=== PATIENT | male | born 1995 | race Caucasian/White ===

== ENCOUNTER 2019-05-14 17:57 | Emergency (ER) | payer OTHER ==
[~2019-05-14] VITALS: Ht 198 cm; Wt 104.5 kg
[2019-05-14] MEDS ORDERED: OLANZapine 5 MG ODT (ZyPREXA ZYDIS) PO ONE ×2 (18:15→18:30)
--- NOTE | 2019-05-14 18:20 | NUR ---
FAMILY WTIH PATIENT.PATIENT REPORTS HAS ON HIM TO HARM HIS SELF OR OTHER.
[2019-05-14 18:40] LABS: BASOPHILS % (AUTO) 0 % (0-10); EOSINOPHILS % (AUTO) 0 % (0-10); HEMATOCRIT 46 % (40-54); HEMOGLOBIN 16.4 G/DL (13.3-17.7); LYMPHOCYTES # (AUTO) 2.2 X 10^3 (1.0-4.0); LYMPHOCYTES % (AUTO) 20 % (12-44); MEAN CORPUSCULAR HEMOGLOBIN 31 PG (25-34); MEAN CORPUSCULAR HGB CONC 36 G/DL (32-36); MEAN CORPUSCULAR VOLUME 86 FL (80-99); MEAN PLATELET VOLUME 8.6 FL (7.4-10.4); MONOCYTES # (AUTO) 1.1 X 10^3 (0.0-1.0); MONOCYTES % (AUTO) 10 % (0-12); NEUTROPHILS # (AUTO) 7.5 X 10^3 (1.8-7.8); NEUTROPHILS % (AUTO) 70 % (42-75); PLATELET COUNT 398 10^3/uL (130-400); RED CELL DISTRIBUTION WIDTH 12.3 % (10.0-14.5); WHITE BLOOD COUNT 10.7 10^3/uL (4.3-11.0)
[2019-05-14 18:43] LABS: BILIRUBIN,URINE NEGATIVE (NEGATIVE); CLARITY,URINE CLEAR; COLOR,URINE YELLOW; GLUCOSE, URINE (UA) NEGATIVE (NEGATIVE); KETONES,URINE 3+ (NEGATIVE); LEUKOCYTE ESTERASE ,URINE 1+ (NEGATIVE); NITRITE,URINE NEGATIVE (NEGATIVE); PH,URINE 8 (5-9); PROTEIN,URINE 2+ (NEGATIVE); UROBILINOGEN,URINE 4 MG/DL (NORMAL)
[2019-05-14 18:56] LABS: BARBITURATE SCREEN URINE NEGATIVE (NEGATIVE); CANNABINOID SCREEN, URINE POSITIVE (NEGATIVE); METHADONE STAT NEGATIVE (NEGATIVE); OPIATE SCREEN URINE NEGATIVE (NEGATIVE); OXYCODONE STAT NEGATIVE (NEGATIVE); PROPOXYPHENE STAT NEGATIVE (NEGATIVE); TRICYCLIC ANTIDEPRESSANTS SCRE NEGATIVE (NEGATIVE)
[2019-05-14 18:57] LABS: AMPHETAMINE SCREEN, URINE NEGATIVE (NEGATIVE); BENZODIAZEPINES SCREEN URINE NEGATIVE (NEGATIVE); COCAINE SCREEN URINE NEGATIVE (NEGATIVE); METHAMPHETAMINE SCREEN URINE S NEGATIVE (NEGATIVE)
[2019-05-14 18:59] LABS: BACTERIA,URINE MODERATE /HPF; WBC,URINE 0-2 /HPF
[2019-05-14 19:00] LABS: AMORPHOUS SEDIMENT,UR MOD AMOR PHOSPHATE /LPF
[2019-05-14 19:03] LABS: ALANINE AMINOTRANSFERASE 30 U/L (0-55); ALBUMIN 5.3 GM/DL (3.2-4.5); ALKALINE PHOSPHATASE 87 U/L (40-136); BILIRUBIN,TOTAL 2.6 MG/DL (0.1-1.0); BUN/CREATININE RATIO 14; CALCIUM 10.5 MG/DL (8.5-10.1); CARBON DIOXIDE 25 MMOL/L (21-32); CHLORIDE 106 MMOL/L (98-107); CREATININE SERUM 0.97 MG/DL (0.60-1.30); GFR ESTIMATED > 60; GLUCOSE 108 MG/DL (70-105); POTASSIUM 3.9 MMOL/L (3.6-5.0); SODIUM 141 MMOL/L (135-145); TOTAL PROTEIN 8.5 GM/DL (6.4-8.2)
--- NOTE | 2019-05-14 19:11 | ED Psychosocial ---
General Chief Complaint: Psych/Social Disorder Stated Complaint: ANXIETY Nursing Triage Note: TO TRIAGE WITH DAD. PT ANXIOUS. STATES HE HAS BEEN HAVING SCHITZOPHRENIC EPISODES X2 DAYS. STATES THIS HAS HAPPENED BEFORE 3 YRS AGO AND ONCE IN HIGHSCHOOL ET NEVER DX. THINKS THE RADIO IS TALKING TO HIM AND SCARED PEOPLE ARE AFTER HIM. DENIES WANTING TO HARM SELF. Source: patient Exam Limitations: no limitations History of Present Illness Date Seen by Provider: May 14, 2019 Time Seen by Provider: 18:20 Initial Comments To ER with c/o anxiety worse than usual for a few months. Brought to ER by his father. Reports scared people are after him, not sleeping, anxiety, "homicidal". WHen asked about the homicidal he states he doesnt want to hurt anyone in particular or anyone at all. No suicidal. He would prefer outpatient treatment, not currently on any medications or seeing any mental health provider. Reports history of bipolar. Timing/Duration: constant Severity: moderate Associated Symptoms: anxiety, impaired concentration Allergies and Home Medications Allergies Coded Allergies: No Known Drug Allergies (Unverified , 05/14/19) Home Medications Quetiapine Fumarate 50 Mg Tablet, 50 MG PO UD Day one 50 mg twice a day Day two 100 mg twice a day. Then continue at 100 mg twice a day. Prescribed by: DOMENICO CANTRELL on 05/14/191936 Patient Home Medication List Home Medication List Reviewed: Yes Review of Systems Constitutional: see HPI EENTM: see HPI Respiratory: no symptoms reported Cardiovascular: no symptoms reported Genitourinary: no symptoms reported Musculoskeletal: no symptoms reported Skin: no symptoms reported Psychiatric/Neurological: See HPI, Anxiety Past Widolkf-Cnwyuk-Utofij Hx Patient Social History Alcohol Use: Occasionally Uses Recreational Drug Use: No Smoking Status: Current Everyday Smoker Recent Foreign Travel: No Contact w/Someone Who Travel: No Recent Infectious Disease Expo: No Recent Hopitalizations: No Seasonal Allergies Seasonal Allergies: No Past Medical History Surgeries: Yes Orthopedic Respiratory: No Cardiac: Yes Hypertension Neurological: No Genitourinary: No Gastrointestinal: No Musculoskeletal: No Endocrine: No HEENT: No Cancer: No Psychosocial: Yes (ASPBURGERS) ADD/ADHD Integumentary: No Physical Exam Vital Signs - First Documented 05/14/19 18:00 Temp 36.0 Pulse 115 Resp 16 B/P (MAP) 126/76 (93) Pulse Ox 97 O2 Delivery Room Air Capillary Refill : Less Than 3 Seconds Height, Weight, BMI Height: '" Weight: lbs. oz. kg; 26.00 BMI Method: General Appearance: WD/WN, no apparent distress, other (cooperative, makes good eye contact, alert and oriented. No apparent hallucinations at this time. ) Neck: non-tender, full range of motion Respiratory: no respiratory distress, no accessory muscle use Gastrointestinal: normal bowel sounds, non tender, soft Neurologic/Psychiatric: alert, normal mood/affect, oriented x 3 Appearance/Memory: appropriate appearance, appropriate insight, neat Behavior/Eye Contact: cooperative, good eye contact, normal speech Thoughts/Hallucinations: normal thought pattern, no apparent hallucination Skin: normal color, warm/dry father at the bedside, seems appropriately concerned and a reliable source to keep an eye on the patient. Both agree that they would prefer the outpatient treatment setting. Progress/Results/Core Measures Results/Orders Lab Results Laboratory Tests Test 05/14/19 18:32 05/14/19 18:35 Range/Units White Blood Count 10.7 4.3-11.0 10^3/uL Red Blood Count 5.30 4.35-5.85 10^6/uL Hemoglobin 16.4 13.3-17.7 G/DL Hematocrit 46 40-54 % Mean Corpuscular Volume 86 80-99 FL Mean Corpuscular Hemoglobin 31 25-34 PG Mean Corpuscular Hemoglobin Concent 36 32-36 G/DL Red Cell Distribution Width 12.3 10.0-14.5 % Platelet Count 398 130-400 10^3/uL Mean Platelet Volume 8.6 7.4-10.4 FL Neutrophils (%) (Auto) 70 42-75 % Lymphocytes (%) (Auto) 20 12-44 % Monocytes (%) (Auto) 10 0-12 % Eosinophils (%) (Auto) 0 0-10 % Basophils (%) (Auto) 0 0-10 % Neutrophils # (Auto) 7.5 1.8-7.8 X 10^3 Lymphocytes # (Auto) 2.2 1.0-4.0 X 10^3 Monocytes # (Auto) 1.1 H 0.0-1.0 X 10^3 Eosinophils # (Auto) 0.0 0.0-0.3 10^3/uL Basophils # (Auto) 0.0 0.0-0.1 10^3/uL Sodium Level 141 135-145 MMOL/L Potassium Level 3.9 3.6-5.0 MMOL/L Chloride Level 106 98-107 MMOL/L Carbon Dioxide Level 25 21-32 MMOL/L Anion Gap 10 5-14 MMOL/L Blood Urea Nitrogen 14 7-18 MG/DL Creatinine 0.97 0.60-1.30 MG/DL Estimat Glomerular Filtration Rate > 60 BUN/Creatinine Ratio 14 Glucose Level 108 H 70-105 MG/DL Calcium Level 10.5 H 8.5-10.1 MG/DL Corrected Calcium 8.5-10.1 MG/DL Total Bilirubin 2.6 H 0.1-1.0 MG/DL Aspartate Amino Transf (AST/SGOT) 32 5-34 U/L Alanine Aminotransferase (ALT/SGPT) 30 0-55 U/L Alkaline Phosphatase 87 40-136 U/L Total Protein 8.5 H 6.4-8.2 GM/DL Albumin 5.3 H 3.2-4.5 GM/DL Urine Color YELLOW Urine Clarity CLEAR Urine pH 8 5-9 Urine Specific [place] 1.015 L 1.016-1.022 Urine Protein 2+ H NEGATIVE Urine Glucose (UA) NEGATIVE NEGATIVE Urine Ketones 3+ H NEGATIVE Urine Nitrite NEGATIVE NEGATIVE Urine Bilirubin NEGATIVE NEGATIVE Urine Urobilinogen 4 H NORMAL MG/DL Urine Leukocyte Esterase 1+ H NEGATIVE Urine RBC (Auto) NEGATIVE NEGATIVE Urine RBC NONE /HPF Urine WBC 0-2 /HPF Urine Squamous Epithelial Cells NONE /HPF Urine Crystals PRESENT H /LPF Urine Amorphous Sediment MOD RYLIE PHOSPHATE H /LPF Urine Bacteria MODERATE H /HPF Urine Casts NONE /LPF Urine Mucus MODERATE H /LPF Urine Culture Indicated NO Urine Opiates Screen NEGATIVE NEGATIVE Urine Oxycodone Screen NEGATIVE NEGATIVE Urine Methadone Screen NEGATIVE NEGATIVE Urine Propoxyphene Screen NEGATIVE NEGATIVE Urine Barbiturates Screen NEGATIVE NEGATIVE Ur Tricyclic Antidepressants Screen NEGATIVE NEGATIVE Urine Phencyclidine Screen NEGATIVE NEGATIVE Urine Amphetamines Screen NEGATIVE NEGATIVE Urine Methamphetamines Screen NEGATIVE NEGATIVE Urine Benzodiazepines Screen NEGATIVE NEGATIVE Urine Cocaine Screen NEGATIVE NEGATIVE Urine Cannabinoids Screen POSITIVE H NEGATIVE My Orders Orders - DOMENICO CANTRELL APRN Olanzapine Orally Dissolve Tab (Zyprexa (05/14/19 18:15) Olanzapine Orally Dissolve Tab (Zyprexa (05/14/19 18:30) Cbc With Automated Diff (05/14/19 18:20) Comprehensive Metabolic Panel (05/14/19 18:20) Ua Culture If Indicated (05/14/19 18:20) Drug Screen Stat (Urine) (05/14/19 18:33) Medications Given in ED Current Medications Medications Dose Ordered Sig/Neel Route Start Time Stop Time Status Last Admin Dose Admin Olanzapine 10 mg ONCE ONCE PO 05/14/19 18:30 05/14/19 18:31 DC 05/14/19 18:23 10 MG Vital Signs/I&O 05/14/19 18:00 Temp 36.0 Pulse 115 Resp 16 B/P (MAP) 126/76 (93) Pulse Ox 97 O2 Delivery Room Air Blood Pressure Mean: 93 Departure Communication (Admissions) Father Gabe Han same address [address] [place], [place] phone #[phone], patient's phone #[phone]. I spoke with Laondra from [facility], she will call them to do a check on the patient this evening and will call tomorrow to make an appointment for follow-up with a provider. 1940-patient states that he is feeling better, father reports that he also seems to be about 50% better but not back to baseline. They're agreeable with the plan, the patient will stay with his father polina Impression Primary Impression: Manic bipolar I disorder Disposition: 01 HOME, SELF-CARE Condition: Stable Departure-Patient Inst. Decision time for Depature: 19:12 Referrals: ROCÍO LOREDO MD (PCP/Family) Primary Care Physician Patient Instructions: Bipolar Disorder Add. Discharge Instructions: 1. Return to ER for any concerns 2. Medication as directed 3. All discharge instructions reviewed with patient and/or family. Voiced understanding. Scripts Quetiapine Fumarate (Seroquel) 50 Mg Tablet 50 MG PO UD, #30 TAB 1 Refill Day one 50 mg twice a day Day two 100 mg twice a day. Then continue at 100 mg twice a day. Prov: DOMENICO CANTRELL APRN 05/14/19 DOMENICO CANTRELL APRN May 14, 2019 19:11
[2019-05-14] MEDS ORDERED: QUET50TA PO (19:37)
[2019-05-14] MEDS ORDERED: QUEtiapine 25 MG (SEROquel) TAB IMMEDIATE RELEASE PO SCH (19:45)
[2019-05-14 19:59] VITALS: BP 125/70
== END 2019-05-14 20:11 | disposition home or self-care (01) ==
LOC: ER 17:59
DX: F31.9 Bipolar disorder, unspecified (principal); F41.9 Anxiety disorder, unspecified; I10 Essential (primary) hypertension; F90.9 Attention-deficit hyperactivity disorder, unspecified type; F17.200 Nicotine dependence, unspecified, uncomplicated
CPT/HCPCS: 36415; 80053; 80306; 81000; 85025

== ENCOUNTER 2019-12-13 15:46 | Emergency (ER) | payer OTHER ==
[~2019-12-13] VITALS: Ht 182 cm; Wt 90.7 kg
[~2019-12-13 15:46] MED LIST: QUET50TA PO
[2019-12-13] MEDS ORDERED: LACTATED RINGERS 1,000 ML IV ONE (16:18)
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
[2019-12-13] MEDS ORDERED: OLANZapine 5 MG ODT (ZyPREXA ZYDIS) PO ONE ×2 (16:30)
--- NOTE | 2019-12-13 16:38 | NUR ---
WAS ABLE TO GET PT TO TAKE HIS ORAL MEDS BUT HE REFUSES TO HAVE A IV OR EKG AT THIS TIME.
--- NOTE | 2019-12-13 17:13 | NUR ---
UPDATED DAD THAT PT IS NOW ALLOWING US TO DO PROCEDURES AND SEEMS TO BE DOING BETTER AT THIS TIME.
[2019-12-13 17:15] LABS: BASOPHILS % (AUTO) 0 % (0-10); EOSINOPHILS % (AUTO) 0 % (0-10); HEMATOCRIT 40 % (40-54); HEMOGLOBIN 14.6 G/DL (13.3-17.7); LYMPHOCYTES # (AUTO) 1.5 X 10^3 (1.0-4.0); LYMPHOCYTES % (AUTO) 11 % (12-44); MEAN CORPUSCULAR HEMOGLOBIN 31 PG (25-34); MEAN CORPUSCULAR HGB CONC 36 G/DL (32-36); MEAN CORPUSCULAR VOLUME 85 FL (80-99); MEAN PLATELET VOLUME 8.7 FL (7.4-10.4); MONOCYTES # (AUTO) 1.1 X 10^3 (0.0-1.0); MONOCYTES % (AUTO) 8 % (0-12); NEUTROPHILS # (AUTO) 10.7 X 10^3 (1.8-7.8); NEUTROPHILS % (AUTO) 80 % (42-75); PLATELET COUNT 322 10^3/uL (130-400); RED CELL DISTRIBUTION WIDTH 12.2 % (10.0-14.5); WHITE BLOOD COUNT 13.3 10^3/uL (4.3-11.0)
[2019-12-13 17:20] LABS: CHLORIDE 107 MMOL/L (98-107); POTASSIUM 3.5 MMOL/L (3.6-5.0); SODIUM 138 MMOL/L (135-145)
[2019-12-13 17:21] LABS: BILIRUBIN,URINE NEGATIVE (NEGATIVE); CLARITY,URINE CLOUDY; COLOR,URINE YELLOW; GLUCOSE, URINE (UA) NEGATIVE (NEGATIVE); KETONES,URINE 1+ (NEGATIVE); LEUKOCYTE ESTERASE ,URINE NEGATIVE (NEGATIVE); NITRITE,URINE NEGATIVE (NEGATIVE); PH,URINE 8.5 (5-9); PROTEIN,URINE TRACE (NEGATIVE)
[2019-12-13 17:21] LABS: ALBUMIN 4.7 GM/DL (3.2-4.5)
[2019-12-13 17:23] LABS: GLUCOSE 91 MG/DL (70-105); TOTAL PROTEIN 7.8 GM/DL (6.4-8.2)
[2019-12-13 17:24] LABS: CARBON DIOXIDE 20 MMOL/L (21-32)
[2019-12-13 17:25] LABS: BILIRUBIN,TOTAL 2.1 MG/DL (0.1-1.0)
[2019-12-13 17:27] LABS: ALKALINE PHOSPHATASE 73 U/L (40-136); CREATININE SERUM 0.81 MG/DL (0.60-1.30); GFR ESTIMATED > 60
[2019-12-13 17:28] LABS: BUN/CREATININE RATIO 11
[2019-12-13 17:30] LABS: ALANINE AMINOTRANSFERASE 26 U/L (0-55); SALICYLATE < 5.0 MG/DL (5.0-20.0)
[2019-12-13] MEDS ORDERED: OLAN10TA3 PO (17:34)
[2019-12-13 17:37] LABS: AMORPHOUS SEDIMENT,UR LARGE AMOR PHOSPHATE /LPF; BACTERIA,URINE TRACE /HPF; RBC,URINE 0-2 /HPF
[2019-12-13 17:38] LABS: AMPHETAMINE SCREEN, URINE NEGATIVE (NEGATIVE); BARBITURATE SCREEN URINE NEGATIVE (NEGATIVE); BENZODIAZEPINES SCREEN URINE NEGATIVE (NEGATIVE); CANNABINOID SCREEN, URINE POSITIVE (NEGATIVE); COCAINE SCREEN URINE NEGATIVE (NEGATIVE); METHADONE STAT NEGATIVE (NEGATIVE); METHAMPHETAMINE SCREEN URINE S NEGATIVE (NEGATIVE); OPIATE SCREEN URINE NEGATIVE (NEGATIVE); OXYCODONE STAT NEGATIVE (NEGATIVE); PROPOXYPHENE STAT NEGATIVE (NEGATIVE); TRICYCLIC ANTIDEPRESSANTS SCRE NEGATIVE (NEGATIVE)
[2019-12-13 17:50] LABS: TSH (THYROID ANALYZER) 0.62 UIU/ML (0.35-4.94)
[2019-12-13 18:01] LABS: ACETAMINOPHEN < 10 UG/ML (10-30)
--- NOTE | 2019-12-13 18:08 | NUR ---
OUT TALKING TO PT'S FATHER.
[2019-12-13 18:12] VITALS: BP 121/78
== END 2019-12-13 18:12 | disposition home or self-care (01) ==
LOC: EDUNIT# 15:46 → ER 15:48
DX: F41.9 Anxiety disorder, unspecified (principal); F22 Delusional disorders; F12.90 Cannabis use, unspecified, uncomplicated; F20.9 Schizophrenia, unspecified; F17.210 Nicotine dependence, cigarettes, uncomplicated
CPT/HCPCS: 36415; 80053; 80306; 80320; 80329; 81000; 84443; 85025; 93005

== ENCOUNTER 2020-08-25 11:03 | Emergency (ER) | payer OTHER ==
[~2020-08-25 11:03] MED LIST changes: +OLAN10TA3 PO
== END 2020-08-25 12:13 | disposition left against medical advice (07) ==
LOC: EDUNIT# 11:03 → ER 11:05
DX: R51.9 Headache, unspecified (principal); J02.9 Acute pharyngitis, unspecified; R05 Cough

== ENCOUNTER → 2020-11-23 | Outpatient (CLI) | payer OTHER ==
--- NOTE | 2020-11-23 17:21 | Diagnostic Imaging Report ---
HISTORY: Back pain in the morning TECHNIQUE: 3 views of the thoracic spine COMPARISON: None FINDINGS: Alignment of the thoracic spine appears normal. Disc heights and vertebral body heights are generally preserved. The upper thoracic spine is obscured by overlapping structures despite the swimmer's view. No fracture is seen. IMPRESSION: 1. No acute abnormality is seen in the thoracic spine. Dictated by: Dictated on workstation # [id number]
== END ==
LOC: RAD 16:10
PROVIDERS: ATTEND Family Medicine
DX: M54.6 Pain in thoracic spine (principal)
CPT/HCPCS: 72072